=== PATIENT | female | born 1965 | race Caucasian/White ===

== ENCOUNTER → 2016-09-28 | Outpatient (CLI) | payer MEDICAID ==
--- NOTE | ~2016-09-28 | MY11 ---
[facility] A Service of [facility] & [facility] RADIOLOGY TEXT RESULTS PATIENT: HARRY WAGONER LOCATION: [facility] : 63 UNIT #: [id number] AGE: [address]: Jose Yee MD SEX: F ORDER DR: [id number] [address] [address] [id number] O MR#: [id number] Acc #: [id number] NAME: HARRY WAGONER : 1965 SEX: F STUDY DATE/TIME: 09/28/2016 11:08 UNIT: [facility] ROOM: STUDY DESCRIPTION: MY Mammogram Screening Dig Artemio Attending Physician: Jose Yee M.D. Referring Physician: Jose Yee M.D. Ordering Physician: Jose Yee M.D. Primary Care Physician: Jose Yee M.D. MEDICAL IMAGING REPORT This report is preliminary unless electronic signature is present. EXAM Bilateral digital screening mammogram with CAD, 09/28/2016. HISTORY No personal or family history of breast cancer. No current complaints. COMPARISON None; this is patient's baseline screening study. FINDINGS CC and MLO views were obtained of each breast, utilizing digital technique, and reviewed with an FDA-approved CAD device. Scattered fibroglandular densities are present bilaterally. There is a 1-cm nodule with spiculated margins within the 12 o'clock axis, left breast, mid to posterior third, located to about 7 cm deep to the nipple. Additionally, there is an approximately 2.5-3 cm aggregate of indeterminate calcifications in the upper inner left breast near the 11 o'clock axis, located anterior to the aforementioned nodule. Within the right breast, no suspicious nodule, architectural distortion or suspicious calcifications are seen. 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 IMPRESSION Additional imaging required. 1-cm spiculated nodule within the 12 o'clock axis, left breast, mid to posterior third. Spot compression CC and MLO planes and diagnostic left breast ultrasound recommended for further evaluation of this nodule. Additionally, there is a 2.5-3.0 cm grouping of indeterminate calcifications in the 11 o'clock axis, left breast, central third, for which additional spot magnification views are STS. [facility] A Service of [facility] & [facility] RADIOLOGY TEXT RESULTS PATIENT: HARRY WAGONER LOCATION: [facility] : 63 UNIT #: [id number] AGE: [address]: Jose Yee MD SEX: F ORDER DR: recommended. Patients over the age of 40 are entered into a reminder system with target due date for the next mammogram. A result letter will also be sent to the patient. BIRADS: 0 Incomplete; need additional imaging evaluation and/or prior mammograms for comparison. Dictated by... Yue Loyola M.D. THIS IS AN ELECTRONICALLY VERIFIED REPORT Yue Loyola M.D. at 09/30/2016 8:49 AM VINCENZO/cesar TD: 09/28/2016 16:16 JOB #: [id number] MEDICAL IMAGING REPORT Page 1 of 1
== END | disposition home or self-care (01) ==
LOC: SMAM 10:12
DX: Z12.31 Encounter for screening mammogram for malignant neoplasm of breast (principal); N63 Unspecified lump in breast
CPT/HCPCS: G0202